=== PATIENT | female | born 1950 | race Caucasian/White ===

== ENCOUNTER 2024-07-08 20:12 | Emergency (ER) | payer OTHER, SELFPAY ==
[2024-07-08] VITALS (7 sets, daily range): BP systolic 141–164; BP diastolic 60–77; PULSE 81–95; RESP 13–20; TEMP 36.7–37.2; O2SAT 92–95; BMI 24.6
--- NOTE | 2024-07-08 20:27 | CT_ITS ---
We are attempting to reach an attending provider to discuss findings. An addendum with communication details will be sent when the communication is complete. STUDY: CT BRAIN WITHOUT CONTRAST REASON FOR EXAM: Female, 74 years old. trauma RADIATION DOSAGE (If Supplied By Facility): CTDIvol = ( 44.99 ) mGy, DLP = ( 745.49 ) mGycm TECHNIQUE: Transaxial CT imaging of the brain was performed without administration of intravenous contrast material. Individualized dose optimization techniques were used for this CT. The protocol utilizes one or more of the following dose reduction techniques: automated exposure control, adjustment of mA and/or kV according to patient size,and/or use of iterative reconstruction technique. COMPARISON: No relevant priors. FINDINGS: Normal soft tissue structures. Normal calvarium. Normal size ventricles and extra-axial spaces for the patient''s age. Normal white matter tracts of the cerebral hemispheres. Normal basal ganglia and thalami. Normal brainstem. Normal cerebellum. Subarachnoid and subdural hemorrhage noted along the tentorium on the right bifrontal convexities. No herniation or midline shift. There are no findings of an acute ischemic infarction. Left maxillary polyps. CT/Brain/Head without Contrast IMPRESSION: Small bifrontal subdural hematomas measuring 3 mm each. Right tentorial subarachnoid and subdural hemorrhage also noted. Electronically Signed: Lior Matos MD at 21:26 EST ,
--- NOTE | 2024-07-08 20:28 | ED.VIS.FALL ---
HPI HPI - Fall History of Present Illness Chief Complaint: Fall Informant: patient and spouse/S.O. Narrative Narrative: 74-year-old female was carrying a chair up a flight of stairs behind her who was carrying a bench, he lost his balance and fell backward, knocking her down backwards, so she fell and hit her head she thinks on the steps, then slid all the way down the flight. She thinks the only other thing that is sore is her tailbone. No loss of consciousness. She has some nausea no headache. PFSH PFSH Medical History Depression Anxiety Hypertension Diabetes Home Medications ?Medication ?Instructions ?Recorded ?Last Taken ?Type hydrochlorothiazide 12.5 mg capsule 12.5 mg PO QDAY 07/08/24 Unknown History metformin 1,000 mg tablet 1,000 mg PO BID 07/08/24 Unknown History saxagliptin 5 mg tablet 5 mg PO DAILY 07/08/24 Unknown History sertraline 50 mg tablet 50 mg PO DAILY 07/08/24 Unknown History telmisartan 40 mg tablet (Micardis) 40 mg PO DAILY 07/08/24 Unknown History Allergy/AdvReac Type Severity Reaction Status Date / Time No Known Allergies Allergy Verified 07/08/24 20:17 Surgical History H/O section Social History Smoking Status: Never smoker ROS ROS ED Constitutional Constitutional ED: Denies chills or fever(s) Eyes Eyes: Denies change in vision or diplopia ENT ENT ED: Denies ear pain, epistaxis, facial pain or rhinorrhea Cardiovascular Cardiovascular: Denies chest pain or palpitations Respiratory/Chest Respiratory/Chest: Denies cough or dyspnea Gastrointestinal Gastrointestinal: Reports nausea; Denies abdominal pain, diarrhea, melena or vomiting Genitourinary Genitourinary ED: Denies dysuria or hematuria Musculoskeletal Musculoskeletal: Denies back pain, extremity pain or neck pain Integumentary Reports Abrasions; Denies abscess, laceration or rash Neurologic Neurologic: Denies confusion, headache(s), paresthesias or weakness EXAM Physical Exam Const Vital Signs: 07/08/24 20:14 07/08/24 20:21 Temperature 98.9 F Temperature Source Oral Pulse Rate 81 Respiratory Rate 20 H Respiratory Effort Normal Non-Labored Respiratory Depth Normal Respiratory Pattern Normal Blood Pressure 164/68 H Blood Pressure Mean 100 Pulse Ox 95 Oxygen Delivery Method Room Air Room Air Positive well nourished and well developed General Appearance ED: well developed and NAD HEENT Reports TM's clear and nasal mucous membranes and turbinates normal HEENT Narrative: No crepitance or depression. No Cho sign. No CSF otorhinorrhea. No facial tenderness. No hemotympanum. trauma and hematoma Hematoma Size: Approximately 3 cm, occipital with associated abrasion no laceration. Face and Sinus: Negative for facial tenderness Tympanic Membrane ED: Yes TM's clear Eyes PERRL and EOMs intact bilaterally Visual Acuity: other Other Details: no entrapment or pain with extraocular movements Neck full ROM and supple General: Negative for tenderness Chest Wall inspection of chest normal and palpation of chest normal Chest: symmetrical chest wall rise; Negative for crepitus or tenderness Resp normal respiratory effort and clear to auscultation bilaterally Percussion: other equal BS bilat Cardio no murmurs Rate: regular rate Rhythm: regular rhythm GI normal to inspection, nondistended, normoactive bowel sounds, soft to palpation and non-tender Back/Spine normal ROM Cervical Spine: Negative for cervical spine tenderness Thoracic Spine / Upper Back: Negative for thoracic spinal tenderness Lumbar Spine / Lower Back: Negative for lumbar spinal tenderness Extremity normal to inspection and full ROM General Extremety ED: Negative for tenderness Neuro oriented x3, CN's II-XII intact bilaterally, moves all extremities, no focal motor deficits and no sensory deficits noted [place] Coma Scale: document GCS findings Spontaneous Obeys Commands Oriented 15 Sensorium / Orientation: awake and alert Psych mental status grossly normal and thought process normal Skin Skin Narrative: Occipital scalp abrasion no laceration no other signs of injury/wound Lesions: no lesions Rashes: no rashes MDM MDM MDM Narrative Medical decision making narrative: Patient has evidence of head trauma with hematoma occipital, no other suspicion clinically for other injury. GCS 15. She was given some Zofran for her nausea. Send her for CT of the head, I reviewed the images as well as report which I agree with. There are small bilateral subdural hematomas as well as small area of right tentorial subarachnoid hemorrhage and some subdural there as well. These areas are all small and there is no acute midline shift. Our hemorrhagic stroke order set was placed in order to obtain good blood pressure control. She is on no antiplatelet or anticoagulant medications. Discussed at length with family, concerning receiving hospital. Discussed with Dr. Cronin at [facility] who accepted the patient to the ICU, awaiting transport. Radiography Diagnostic Testing: Clinical Impression(s) from Imaging Studies Brain CT 07/08/24 20:27 IMPRESSION: Small bifrontal subdural hematomas measuring 3 mm each. Right tentorial subarachnoid and subdural hemorrhage also noted. Electronically Signed: Lior Matos MD at 21:26 EST , Management Discussion w/another healthcare provider: Termite Exterminator Helper (Dr. Cronin, trauma surgery - [facility]) and Radiologist Critical Care Time Critical Care Time: Yes Critical care time (excluding procedures): 30-74 minutes (39 min), Including time spent:, Discussing w/Patient &/or Family/Blacksmith Supervisor, Discussing w/Consultants, Arranging Admission or Transfer and Performing Direct Patient Care at Bedside Discharge Plan Triage Chief Complaint: Fall ED Provider: Sean Llamas Dx/Rx/DC Orders Clinical Impression: Traumatic subdural hematoma, Traumatic subarachnoid hemorrhage, Accidental fall on or from stairs or steps Prescriptions: No Action saxagliptin 5 mg tablet 5 mg PO DAILY telmisartan [Micardis] 40 mg tablet 40 mg PO DAILY hydrochlorothiazide 12.5 mg capsule 12.5 mg PO QDAY metformin 1,000 mg tablet 1,000 mg PO BID sertraline 50 mg tablet 50 mg PO DAILY Primary Care Provider: Enrique Paez Referrals: Enrique Paez DO [Primary Care Provider] - Print Language: Occitan Disposition Disposition: Acute Care Hospital Discharge Location: [facility]
[2024-07-08] MEDS: Ondansetron ODT 4 MG Tablet 8 MG PO (20:33)
[2024-07-08] MEDS: Labetalol (Prefilled) 20 MG/4 ML Vial IV ×2 (22:28→22:39)
[2024-07-08 22:57] LABS: Bedside Glucose 226 mg/dL (74-106)
== END 2024-07-08 22:51 | disposition short-term general hospital (02) ==
PROVIDERS: Emergency Provider Emergency Medicine; PCP Family Medicine; Visit Provider Emergency Medicine
DX: S06.5XAA Traumatic subdural hemorrhage with loss of consciousness status unknown, initial encounter (principal); S06.6XAA Traumatic subarachnoid hemorrhage with loss of consciousness status unknown, initial encounter; E11.9 Type 2 diabetes mellitus without complications; S00.01XA Abrasion of scalp, initial encounter; W10.9XXA Fall (on) (from) unspecified stairs and steps, initial encounter; I10 Essential (primary) hypertension; F32.A Depression, unspecified; F41.9 Anxiety disorder, unspecified; Z79.84 Long term (current) use of oral hypoglycemic drugs; Z79.899 Other long term (current) drug therapy
CPT/HCPCS: 70450; 82962; 99285; A4216

== ENCOUNTER 2025-06-19 08:00 | Emergency (ER) | payer OTHER, SELFPAY ==
[2025-06-19] VITALS (7 sets, daily range): BP systolic 124–137; BP diastolic 58–66; PULSE 71–85; RESP 14–18; TEMP 36.6–36.7; O2SAT 96–98; BMI 21.9
--- NOTE | 2025-06-19 08:49 | CT_ITS ---
PROCEDURE: ABDOMEN/PELVIS WITHOUT CONT 06/19/2025 REASON FOR EXAM: PAIN Left flank pain. Kidney infection diagnosed on Wednesday. Hypertension, diabetes. Prior TECHNIQUE: Procedure Code: [id number] Modality: CT Procedure: ABDOMEN/PELVIS WITHOUT CONT Noncontrast technique limits evaluation of the abdominal and pelvic viscera. Coronal and Sagittal reconstruction series were provided. One or more dose reduction techniques were used (e.g., Automated exposure control, adjustment of the mA and/or kV according to patient size, use of iterative reconstruction technique). RADIATION DOSE SUMMARY: CTDlvol: 7 mGy DLP: 329 mGycm COMPARISON: None FINDINGS: Lung bases: Linear scarring inferior lingula and both lower lobes. Liver: Liver is non cirrhotic. A 13 mm mass is shown in the left lobe on image 48. Subcentimeter foci are shown in the anterior and posterior segments of the right lobe on images 35 and 58. These are non- specific in the absence of contrast. Gallbladder: Small calculi dependently. No wall thickening or pericholecystic fluid. No biliary ductal dilation. Spleen: Normal Pancreas: Normal Adrenals: Normal. Kidneys: Simple cyst right mid to lower pole is 22 mm and another cyst is seen at the mid to upper pole on the left measuring 13 mm. Punctate calculus right lower lobe. Bladder: Normal Reproductive Organs: Uterus and ovaries are unremarkable. Bowel: Small sliding hiatus hernia. Small bowel is normal. Colonic diverticulosis without diverticulitis. Appendix: The appendix is not identified. There is no inflammatory process identified in the right lower quadrant to suggest appendicitis. Lymph nodes: None appear enlarged. Vasculature: [id number] atherosclerotic plaque. No aneurysm. Peritoneum / Retroperitoneum: No free air, free fluid or mass. Bones: Decreased bone mineralization. Lower lumbar facet hypertrophy. Moderate disc space narrowing, vacuum disc phenomenon L4/5. CT/Abdomen/Pelvis without Cont IMPRESSION: 1. Gallstones. 2. Bilateral renal cysts are benign. Bosniak 1. No follow-up required. Nono bstructing renal calculi. 3. Low-density masses in the liver are statistically benign in the absence of a known primary and in a non cirrhotic liver such as this. Differential includes cysts versus hemangiomas. If desired, recommen d contrast-enhanced MRI on a nonemergent basis. Alternatively, recommend comparison to outside imaging if available. Reading Location: [id number]
--- NOTE | 2025-06-19 08:49 | ED.VIS.GI ---
HPI HPI - GI History of Present Illness Chief Complaint: Flank Pain Detail of Chief Complaint: Left flank pain. Informant: patient and spouse/S.O. Abdominal Pain/Flank Pain Onset: Weeks Context: Gradual Onset Timing: Continuous Location: Left Flank Current Severity: Moderate Maximum Severity: Moderate Worsened by: Nothing Relieved by: Nothing Nausea/Vomiting/Emesis GI Symptom: Negative for Nausea or Vomiting Diarrhea/Melena/Hematochezia GI Symptom: Negative for Diarrhea, Melena or Hematochezia Associated Symptoms Associated Symptoms: Negative for Dysuria, Frequency, Hematuria or Urgency Narrative Narrative: 75-year-old female history of kidney stones, diabetes. She has had left flank pain for 2 weeks is progressively gotten worse. She saw her primary care physician's office on Wednesday. Was diagnosed as a UTI. Placed on Macrobid twice a day. Since she is not getting any better. Prior similar symptoms: Yes Recent Illness/Hospitalization: No PFSH PFSH Medical History Depression Anxiety Hypertension Diabetes Home Medications ?Medication ?Instructions ?Recorded ?Last Taken ?Type hydrochlorothiazide 12.5 mg capsule 12.5 mg PO QDAY 07/08/24 Unknown History metformin 1,000 mg tablet 1,000 mg PO BID 07/08/24 Unknown History saxagliptin 5 mg tablet 5 mg PO DAILY 07/08/24 Unknown History sertraline 50 mg tablet 50 mg PO DAILY 07/08/24 Unknown History telmisartan 40 mg tablet (Micardis) 40 mg PO DAILY 07/08/24 Unknown History Allergy/AdvReac Type Severity Reaction Status Date / Time No Known Allergies Allergy Verified 06/19/25 08:05 Surgical History H/O section Social History Smoking Status: Never smoker ROS ROS ED ROS Narrative Left flank pain. Constitutional Constitutional ED: Reports chills and fever(s) ENT ENT ED: Denies ear pain Cardiovascular Cardiovascular: Denies chest pain Respiratory/Chest Respiratory/Chest: Denies cough Gastrointestinal Gastrointestinal: Reports other Details: Left flank pain. ; Denies abdominal pain, diarrhea, nausea or vomiting Genitourinary Genitourinary ED: Denies dysuria or hematuria Musculoskeletal Musculoskeletal: Denies arthralgias Integumentary Denies abscess Psychiatric Psychiatric: Denies anxiety Endocrine Endocrinology: Denies polydipsia Hematologic/Lymphatic Hematologic/Lymphatic: Denies easy bleeding Allergic/Immunologic Allergic/Immunologic ED: Denies mouth swelling, tongue swelling or urticaria EXAM Physical Exam Narrative Exam Narrative: 75-year-old female sitting upright in bed. Vital signs are stable afebrile. at bedside. She is in no acute distress. H EENT exam pupils round react light. Moist extremities. Neck nontender. Back no reproducible pain. No rashes or bruising. She complains of left CVA area tenderness but is not reproducibly tender. Lungs clear to auscultation. Heart regular rhythm no murmur. Chest wall ribs nontender. Abdomen soft nontender. Moving all 4 extremities. 5 out of 5 senior systems engineer strength. Dorsi plantarflexion intact. Neurologically she is awake alert. Answering questions following commands. Const Vital Signs: 06/19/25 08:02 06/19/25 08:05 06/19/25 09:01 Temperature 98.1 F 98 F Temperature Source Oral Oral Pulse Rate 81 72 71 Respiratory Rate 14 18 16 Blood Pressure 132/66 H 124/64 H 134/64 H Blood Pressure Mean 88 84 87 Pulse Ox 98 96 98 Oxygen Delivery Method Room Air Room Air 06/19/25 09:05 06/19/25 10:00 06/19/25 10:00 Temperature 98 F 98 F Temperature Source Oral Oral Pulse Rate 71 71 72 Respiratory Rate 18 18 16 Blood Pressure 134/62 H 130/58 H 130/58 H Blood Pressure Mean 86 82 82 Pulse Ox 97 97 98 Oxygen Delivery Method Room Air Room Air 06/19/25 11:00 06/19/25 11:03 Temperature 97.9 F Temperature Source Pulse Rate 78 85 Respiratory Rate 16 18 Blood Pressure 137/61 H 137/61 H Blood Pressure Mean 86 86 Pulse Ox 96 96 Oxygen Delivery Method Positive well nourished and well developed; Negative for cachectic, contractures or unkempt General Appearance ED: well developed and NAD; Negative for unkempt, cachectic, contractures or pallor Nutritional Appearance: Negative for cachectic HEENT Reports moist mucous membranes normocephalic and atraumatic Eyes PERRL and EOMs intact bilaterally Neck no lymphadenopathy, supple and no JVD Resp normal respiratory effort and clear to auscultation bilaterally Cardio regular rate, regular rhythm, S1 normal heart sound, S2 normal heart sound and no murmurs GI non-tender, non-distended and no masses Auscultation: normoactive bowel sounds Palpation: soft; Negative for tender, guarding or rebound tenderness present Back/Spine no CVA tenderness General Back: Negative for CVA tenderness Cervical Spine: Negative for cervical spine tenderness Thoracic Spine / Upper Back: Negative for thoracic spinal tenderness Lumbar Spine / Lower Back: Negative for lumbar spinal tenderness Extremity full ROM General Extremety ED: Negative for edema or tenderness General Extremity: Negative for edema Neuro CN's II-XII intact bilaterally and moves all extremities Sensorium / Orientation: alert, oriented to person, oriented to place and oriented to time Motor Exam: strength 5/5 throughout Psych mental status grossly normal and thought process normal Appearance: Negative for unkempt Skin no wounds General Skin Exam: Negative for jaundice or pallor Lesions: no lesions Rashes: no rashes MDM MDM MDM Narrative Medical decision making narrative: 75-year-old female left flank pain for 2 weeks. Diagnosed a UTI on Macrobid by her primary care physician's office. CAT scan and labs to be obtained differential include UTI, pyelonephritis, kidney stone versus other etiologies. She be given morphine for pain and Zofran. A liter normal saline. Repeat exam around 11:08 PM unchanged. Labs are benign UA is negative. CAT scan shows no acute kidney stone or cause of her left flank pain. Patient be discharged home with outpatient follow-up. Tylenol for pain. History & Record Review Discussion w/independent historian: Patient and Family Additional record(s) reviewed:: Prior inpatient record, Prior outpatient record, Prior ED visit and Prior labs Lab Data Attestation: I reviewed the patient's lab results. Lab results narrative: CBC shows white count 3.5 H&H 11.6 and 34. Platelets 154. Electrolytes show a gap of 13. BUN and creatinine of 30 and 1.35. Glucose 164. Urinalysis shows no nitrates. No white or red cells. No bacteria. Labs: Laboratory Results - last 24 hr 06/19/25 06/19/25 08:30 09:24 WBC 3.5 L RBC 3.83 L Hgb 11.6 L Hct 34.4 L MCV 89.8 MCH 30.3 MCHC 33.7 RDW Std Deviation 38.8 RDW Coeff of [place] 11.9 Plt Count 154 MPV 9.5 Immature Gran % (Auto) 0.300 Neut % (Auto) 79.6 H Lymph % (Auto) 3.1 L [place] % (Auto) 6.5 Eos % (Auto) 10.2 H Baso % (Auto) 0.3 Absolute Neuts (auto) 2.8 Absolute Lymphs (auto) 0.11 L Nucleated RBC % 0 Sodium 136 Potassium 3.9 Chloride 99 Carbon Dioxide 24.7 Anion Gap 13 BUN 30 H Creatinine 1.35 H Estim Creat Clear Calc 31.09 L Est GFR (MDRD) Non-Af 41 L BUN/Creatinine Ratio 21.9 H Glucose 164 H Calcium 9.1 Urine Color Yellow Urine Clarity Clear Urine pH 6.0 Ur Specific [place] 1.010 Urine Protein 30 H Urine Glucose (UA) Normal Urine Ketones 15 H Urine Occult Blood 10 H Urine Nitrite Negative Urine Bilirubin Negative Urine Urobilinogen Normal Ur Leukocyte Esterase 25 H Urine RBC 0 SEEN Urine WBC 0-5 SEEN Ur Squamous Epith Cells 0-5 SEEN Urine Bacteria 0 SEEN Urine Mucus 0 SEEN Radiography Diagnostic Testing: Clinical Impression(s) from Imaging Studies Abdomen/Pelvis CT 06/19/25 08:49 IMPRESSION: 1. Gallstones. 2. Bilateral renal cysts are benign. Bosniak 1. No follow-up required. Nonobstructing renal calculi. 3. Low-density masses in the liver are statistically benign in the absence of a known primary and in a non cirrhotic liver such as this. Differential includes cysts versus hemangiomas. If desired, recommend contrast-enhanced MRI on a nonemergent basis. Alternatively, recommend comparison to outside imaging if available. Reading Location: [id number] Discharge Plan Triage Chief Complaint: Flank Pain ED Provider: Lalito Kiser Dx/Rx/DC Orders Prescriptions: No Action saxagliptin 5 mg tablet 5 mg PO DAILY telmisartan [Micardis] 40 mg tablet 40 mg PO DAILY hydrochlorothiazide 12.5 mg capsule 12.5 mg PO QDAY metformin 1,000 mg tablet 1,000 mg PO BID sertraline 50 mg tablet 50 mg PO DAILY Print Language: Nepali
[2025-06-19] MEDS: 0.9% Normal Saline (1000mL) 1,000 ML 999 ML IV (08:57)
[2025-06-19 09:15] LABS: Hematocrit 34.4 % (37-47); Hemoglobin 11.6 g/dL (12.0-15.0); Immature Granulocytes Count 0.010 X10^3/uL (0.0-0.0); Mean Corp Hgb Conc 33.7 g/dL (32-36); Mean Corpuscular Volume 89.8 fL (81-99); Mean Platelet Vol. 9.5 fl (6.2-12.0); NRBC Flagged by Analyzer 0 % (0-5); POSITIVE DIFFERENTIAL YES; Platelet Count 154 K/mm3 (150-450); RBC Distribution Width CV 11.9 % (11.6-14.6); RBC Distribution Width SD 38.8 fl (35.1-43.9); Red Blood Count 3.83 M/mm3 (4.2-5.4); White Blood Count 3.5 K/mm3 (4.4-11.0)
[2025-06-19 09:28] LABS: Mucous, Urine 0 SEEN /hpf (<or=2+); Red Blood Cells-Urine 0 SEEN /hpf (0-5)
[2025-06-19 09:31] LABS: Color, Urine Yellow (Yellow); Glucose, Dipstick Normal (Normal); Ketone-Dipstick 15 mg/dl (Negative); Leukocyte Esterase-Dipstick 25 /ul (Negative); Nitrite-Dipstick Negative (Negative); Occult Blood-Urine 10 /ul (Negative); Protein-Dipstick 30 mg/dl (Negative); Specific Gravity, Urine 1.010 (1.002-1.030); Urine Bilirubin Dipstick Negative (Negative)
[2025-06-19 09:36] LABS: Anion Gap 13 (5-15); BUN 30 mg/dL (4-19); BUN/Creat Ratio 21.9 RATIO (10-20); Calcium,Total 9.1 mg/dL (7.6-11.0); Carbon Dioxide 24.7 mmol/L (21.0-32.0); Chloride 99 mmol/L (98-108); Estimated Creatinine Clearance 31.09 ml/min (50-250); Glucose 164 mg/dL (70-99); Potassium 3.9 mmol/L (3.3-5.1)
[2025-06-19 09:38] LABS: Squamous Epithelial Cells - UA 0-5 SEEN /hpf (5-10)
== END 2025-06-19 11:31 | disposition home or self-care (01) ==
PROVIDERS: Emergency Provider Emergency Medicine; Visit Provider Emergency Medicine
DX: R10.A2 Flank pain, left side (principal); E11.9 Type 2 diabetes mellitus without complications; N39.0 Urinary tract infection, site not specified; I10 Essential (primary) hypertension; F32.A Depression, unspecified; F41.9 Anxiety disorder, unspecified; Z79.84 Long term (current) use of oral hypoglycemic drugs; Z87.442 Personal history of urinary calculi; Z79.899 Other long term (current) drug therapy
CPT/HCPCS: 74176; 80048; 81001; 85025; 96361; 96374; 96375; 99282; A4216; J2405